=== PATIENT | female | born 1970 | race African-American/Black ===

== ENCOUNTER 2018-02-16 03:31 | Emergency (ER) | payer MEDICAID ==
[~2018-02-16] VITALS: Ht 170.2 cm; Wt 50.0 kg
[~2018-02-16 03:31] MED LIST: PHEN100C4 PO
[2018-02-16 07:15] VITALS: BP 155/74
== END 2018-02-16 07:30 | disposition home or self-care (01) ==
LOC: ER 03:31
DX: R04.0 Epistaxis (principal); J01.90 Acute sinusitis, unspecified; G40.909 Epilepsy, unspecified, not intractable, without status epilepticus; F12.10 Cannabis abuse, uncomplicated; F19.10 Other psychoactive substance abuse, uncomplicated; Z88.0 Allergy status to penicillin
CPT/HCPCS: 99283

== ENCOUNTER 2018-05-16 22:22 | Inpatient (IN) | payer SELFPAY ==
[~2018-05-16] VITALS: Ht 152.4 cm; Wt 63.5 kg
[2018-05-16] MEDS ORDERED: ACETAMINOPHEN 325MG TABLET PO STA (23:18)
[2018-05-16] MEDS ORDERED: SODIUM CHLORIDE 0.9% 1,000 ML IV ONE (23:18)
[2018-05-16] MEDS ORDERED: LORAZEPAM 1MG TABLET PO ONE (23:45)
[2018-05-17] VITALS (8 sets, daily range): BP systolic 88–100; BP diastolic 63–75
[2018-05-17 00:03] LABS: BASOPHILS % 0.4 % (0.0-2.0); HEMATOCRIT. 24.8 % (36.0-48.0); HEMOGLOBIN. 8.4 g/dL (12.0-16.0); LYMPHOCYTES % 12.9 % (20.0-50.0); MEAN CORPUSCULAR HEMOGLOBIN 37.3 pg (28.0-32.0); MEAN CORPUSCULAR VOLUME 109.7 fL (81.0-99.0); MONOCYTES % 8.1 % (2.0-8.0); NEUTROPHILS % 78.6 % (40.0-76.0); PLATELET 130 x1000/uL (130-400); RED BLOOD CELL COUNT 2.26 mill/uL (4.2-5.4); RED CELL DISTRIBUTION WIDTH 12.6 % (11.6-14.6)
[2018-05-17 00:06] LABS: CHLORIDE 101 mEq/L (98-107)
[2018-05-17 00:11] LABS: ETHANOL BLOOD < 10 mg/dL
[2018-05-17] MEDS ORDERED: ASPIRIN 325MG EC TABLET PO ONE (00:45)
[2018-05-17] MEDS ORDERED: LORAZEPAM 2MG/ML CPJ IV ONE (00:45)
[2018-05-17] MEDS ORDERED: POTASSIUM CHLORIDE 20MEQ TABLET SR PO ONE (01:15)
[2018-05-17] MEDS ORDERED: DOCUSATE SODIUM 100MG CAPSULE PO PRN (05:00)
[2018-05-17] MEDS ORDERED: MORPHINE SULFATE 4 MG/ML CPJ (NOT FOR IM USE) IV PRN (05:00)
[2018-05-17] MEDS ORDERED: HYDROCODONE/ACETAMINOPHEN 5/325MG TABLET PO PRN (05:00)
[2018-05-17] MEDS: SODIUM CHLORIDE 0.9% 1,000 ML IV SCH ×2 (05:00→16:03)
[2018-05-17] MEDS ORDERED: ACETAMINOPHEN 325MG TABLET PO PRN (05:00)
[2018-05-17] MEDS ORDERED: ONDANSETRON HCL 4MG/2ML VIAL IV PRN (05:00)
[2018-05-17] MEDS ORDERED: MAGNESIUM/ALUMINUM HYDROXIDE/SIMETHICONE 30ML UDC PO PRN (05:00)
[2018-05-17] MEDS: ENOXAPARIN 60MG/0.6ML SYR SUBCUT SCH ×2 (05:46→17:41)
[2018-05-17] MEDS: ASPIRIN 81MG EC TABLET PO SCH (10:01)
[2018-05-17] MEDS ORDERED: POTASSIUM CHLORIDE 20MEQ TABLET SR PO NR (10:45)
[2018-05-17 10:49] LABS: CREATINE KINASE MB FRACTION 11.2 ng/mL (0.5-3.6)
[2018-05-17 12:11] LABS: T4 FREE 1.19 ng/dL (0.76-1.46)
[2018-05-17 16:18] LABS: CHLORIDE 105 mEq/L (98-107)
[2018-05-17 16:27] LABS: CREATINE KINASE 205 IU/L (26-192)
[2018-05-17 16:29] LABS: CREATINE KINASE MB FRACTION 9.9 ng/mL (0.5-3.6)
[2018-05-18] VITALS: BP 92/62
[2018-05-18 04:00] VITALS: BP 96/63
[2018-05-18] MEDS: SODIUM CHLORIDE 0.9% 1,000 ML IV SCH ×2 (04:33→19:10)
[2018-05-18] MEDS: ENOXAPARIN 60MG/0.6ML SYR SUBCUT SCH (05:37)
[2018-05-18 07:28] LABS: HEMATOCRIT. 23.9 % (36.0-48.0); MEAN CORPUSCULAR HEMOGLOBIN 37.7 pg (28.0-32.0); MEAN PLATELET VOLUME 9.6 fl (7.4-10.4); PLATELET 141 x1000/uL (130-400); RED BLOOD CELL COUNT 2.12 mill/uL (4.2-5.4); RED CELL DISTRIBUTION WIDTH 13.7 % (11.6-14.6)
[2018-05-18 08:00] VITALS: BP 103/77
[2018-05-18 08:21] LABS: CHLORIDE 108 mEq/L (98-107)
[2018-05-18 08:43] LABS: NUCLEATED RED BLOOD CELLS 1 /100 WBC; PLATELET ESTIMATE NORMAL
[2018-05-18 09:38] LABS: HDL CHOLESTEROL 53 mg/dL (40-59); LDL CHOLESTEROL 51 mg/dL (5-100)
[2018-05-18] MEDS: ASPIRIN 81MG EC TABLET PO SCH (09:48)
[2018-05-18 12:00] VITALS: BP 100/71
[2018-05-18 16:00] VITALS: BP 96/70
[2018-05-18] MEDS: LEVOFLOXACIN 500MG TABLET PO SCH (19:10)
[2018-05-18 20:00] VITALS: BP 98/67
[2018-05-18 23:10] LABS: *AMPHETAMINES SCREEN URINE NEGATIVE (NEGATIVE); *BARBITURATES SCREEN URINE NEGATIVE (NEGATIVE); *BENZODIAZEPINES SCREEN URINE NEGATIVE (NEGATIVE); *COCAINE SCREEN URINE NEGATIVE (NEGATIVE)
[2018-05-18 23:11] LABS: CANNABINOID URINE SCREEN NEGATIVE (NEGATIVE); METHADONE URINE SCREEN NEGATIVE (NEGATIVE)
[2018-05-18 23:17] LABS: OPIATES URINE SCREEN PRESUMTIVE POSITIVE (NEGATIVE); PHENCYCLIDINE URINE SCREEN PRESUMTIVE POSITIVE (NEGATIVE)
[2018-05-19] VITALS: BP 117/77
[2018-05-19 04:00] VITALS: BP 90/61
[2018-05-19] MEDS: SODIUM CHLORIDE 0.9% 1,000 ML IV SCH (05:14)
[2018-05-19 08:00] VITALS: BP 98/69
[2018-05-19] MEDS: ASPIRIN 81MG EC TABLET PO SCH (08:41)
[2018-05-19] MEDS: PHENYTOIN SODIUM EXTENDED 100MG CAPSULE PO SCH ×2 (10:14→20:49)
[2018-05-19] MEDS ORDERED: REGADENOSON 0.4 MG/5 ML IV ONE ×2 (11:00→12:31)
[2018-05-19 12:00] VITALS: BP 95/67
[2018-05-19 16:00] VITALS: BP 112/79
[2018-05-19] MEDS: LEVOFLOXACIN 500MG TABLET PO SCH (18:33)
[2018-05-19 20:00] VITALS: BP_SYST 108; BP_SYST 110; BP_DIAS 62
[2018-05-19] MEDS: CARVEDILOL 3.125 MG TABLET PO SCH (20:49)
[2018-05-20] VITALS: BP 107/74
[2018-05-20 04:00] VITALS: BP 111/63
[2018-05-20 08:00] VITALS: BP 102/68
[2018-05-20] MEDS ORDERED: FUROSEMIDE 40MG TABLET PO SCH (09:00)
[2018-05-20] MEDS: CARVEDILOL 3.125 MG TABLET PO SCH (09:00)
[2018-05-20 09:05] LABS: HEMATOCRIT. 25.1 % (36.0-48.0); HEMOGLOBIN. 8.1 g/dL (12.0-16.0); MEAN CORPUSCULAR HEMOGLOBIN 36.7 pg (28.0-32.0); MEAN CORPUSCULAR VOLUME 113.5 fL (81.0-99.0); MEAN PLATELET VOLUME 9.3 fl (7.4-10.4); PLATELET 176 x1000/uL (130-400); RED BLOOD CELL COUNT 2.21 mill/uL (4.2-5.4); RED CELL DISTRIBUTION WIDTH 14.6 % (11.6-14.6)
[2018-05-20] MEDS: ASPIRIN 81MG EC TABLET PO SCH (09:15)
[2018-05-20] MEDS: PHENYTOIN SODIUM EXTENDED 100MG CAPSULE PO SCH (09:15)
[2018-05-20 11:53] VITALS: BP 108/75
[2018-05-20 12:20] LABS: VITAMIN B12 SERUM 394 pg/mL (211-911)
[2018-05-20 16:31] VITALS: BP 107/69
[2018-05-20 16:56] VITALS: BP 107/69
[2018-05-20 17:18] LABS: NUCLEATED RED BLOOD CELLS 4 /100 WBC; PLATELET ESTIMATE NORMAL
== END 2018-05-20 17:21 | disposition home or self-care (01) | DRG 190 ==
LOC: ER 22:22 → 5WST 05-17 01:12 → EDBEDREQ 05-17 01:15 → EDBEDREQTM 05-17 01:15 → ENRESERV 05-17 01:51
PROVIDERS: ADMIT Hospitalist; ATTEND Hospitalist
DX: I21.4 Non-ST elevation (NSTEMI) myocardial infarction (principal); I42.9 Cardiomyopathy, unspecified; I11.0 Hypertensive heart disease with heart failure; I50.20 Unspecified systolic (congestive) heart failure; D64.9 Anemia, unspecified; E11.9 Type 2 diabetes mellitus without complications; F10.10 Alcohol abuse, uncomplicated; K62.5 Hemorrhage of anus and rectum; F15.10 Other stimulant abuse, uncomplicated; F17.200 Nicotine dependence, unspecified, uncomplicated; F16.90 Hallucinogen use, unspecified, uncomplicated; Z79.899 Other long term (current) drug therapy; Z88.0 Allergy status to penicillin; Z88.8 Allergy status to other drugs, medicaments and biological substances
CPT/HCPCS: 36415; 70450; 71045; 78452; 80048; 80053; 80061; 80305; 82550; 82553; 82607; 83036; 83880; 84439; 84443; 84484; 85025; 85379; 93005; 93017; 93306; 93970; 96360; 96361; 99285; A9500; G0482; J1650; J2060; J2270; J2405; J2785; J7030

== ENCOUNTER 2019-06-27 21:56 | Emergency (ER) | payer MEDICAID ==
[~2019-06-27] VITALS: Ht 175.3 cm; Wt 69.0 kg
[2019-06-27] MEDS ORDERED: SODIUM CHLORIDE 0.9% 1,000 ML IV ONE (22:20)
[2019-06-27] MEDS ORDERED: ONDANSETRON HCL 4MG/2ML INJ IV STA (22:20)
[2019-06-27 22:51] LABS: BASOPHILS % 0.7 % (0.0-2.0); HEMATOCRIT. 33.3 % (36.0-48.0); HEMOGLOBIN. 10.8 g/dL (12.0-16.0); LYMPHOCYTES % 19.9 % (20.0-50.0); MEAN CORPUSCULAR HEMOGLOBIN 31.3 pg (28.0-32.0); MEAN PLATELET VOLUME 9.1 fl (7.4-10.4); MONOCYTES % 8.9 % (2.0-8.0); NEUTROPHILS % 68.5 % (40.0-76.0); PLATELET 331 x1000/uL (130-400); RED BLOOD CELL COUNT 3.47 mill/uL (4.2-5.4); RED CELL DISTRIBUTION WIDTH 14.2 % (11.6-14.6)
[2019-06-27 22:56] LABS: CHLORIDE 95 mEq/L (98-107)
[2019-06-27 22:58] LABS: HCG SCREEN NEGATIVE
[2019-06-27 23:02] LABS: ETHANOL BLOOD 226 mg/dL
[2019-06-27 23:06] LABS: CREATINE KINASE 134 IU/L (26-192)
[2019-06-27 23:08] LABS: CREATINE KINASE MB FRACTION 5.4 ng/mL (0.5-3.6)
[2019-06-27] MEDS ORDERED: POTASSIUM CHLORIDE 20MEQ TABLET SR PO ONE (23:15)
[2019-06-28 02:00] VITALS: BP 133/81
== END 2019-06-28 02:00 | disposition home or self-care (01) ==
LOC: ER 21:56
DX: T51.0X1A Toxic effect of ethanol, accidental (unintentional), initial encounter (principal); G92 Toxic encephalopathy; G40.909 Epilepsy, unspecified, not intractable, without status epilepticus; I25.2 Old myocardial infarction; F17.210 Nicotine dependence, cigarettes, uncomplicated; F12.10 Cannabis abuse, uncomplicated; F16.10 Hallucinogen abuse, uncomplicated; Y90.7 Blood alcohol level of 200-239 mg/100 ml; Z88.0 Allergy status to penicillin; Y92.488 Other paved roadways as the place of occurrence of the external cause
CPT/HCPCS: 36415; 70450; 71045; 80053; 80307; 80320; 80329; 82140; 82550; 82553; 83690; 83880; 84443; 84484; 84703; 85025; 93005; 96374; 99284; J2405; J7030; G0480